=== PATIENT | male | born 1995 | race Caucasian/White ===

== ENCOUNTER 2020-11-27 10:34 | Emergency (ER) | payer BC, SELFPAY ==
--- NOTE | 2020-11-27 10:38 | ED.SKABFB ---
HPI - Skin/Abscess/Foreign Bdy General Chief complaint: Skin/Abscess/Foreign Body Stated complaint: cruz redness Time Seen by Provider: 11/27/20 10:38 Source: patient and RN notes reviewed History of Present Illness HPI narrative: Patient is a 25-year-old male who presents the urgent care with complaints of redness and swelling to the right lower leg. Patient states that it started yesterday. Denies of any fever, chills, nausea, vomiting. Denies of any injury or trauma. Did not take anything [id number] for his pain. No other acute complaints. No acute distress noted. Patient aware of the plan of care. Some parts of this dictation were generated by voice recognition software and may contain typographical and/or grammatical inaccuracies. Related Data Allergies Allergy/AdvReac Type Severity Reaction Status Date / Time No Known Allergies Allergy Unverified 11/27/20 10:49 Review of Systems Review of Systems: Narrative: CONSTITUTIONAL: Denies fever, chills, or sweats. EYES: Denies visual changes, redness, or discharge. ENT: Denies rhinorrhea, congestion, sore throat, or otalgia. CARDIOVASCULAR: Denies chest pain, palpitations, or edema. RESPIRATORY: Denies cough or dyspnea. GASTROINTESTINAL: Denies abdominal pain, nausea, vomiting, or diarrhea. GENITOURINARY: Denies dysuria or hematuria. SKIN: Reports of redness and swelling to the right lower leg MUSCULOSKELETAL: Denies back pain, joint pain, or myalgia. NEUROLOGIC: Denies headache, numbness, or weakness. All other systems reviewed are negative, except as documented in HPI. PMFSH Social History Social History (Updated 12/31/19 @ 08:50 by Linda Cruz) Smoking status: Never smoker Second hand tobacco smoke exposure: No Alcohol intake: current Drinks per week: 4 Substance use: never Substance use type: does not use Gender identity (if verbalized by the patient): Male Comments At the time of my signature, I reviewed and agree with the nursing past medical, surgical, social, and family history. There is no relevant family history pertinent to the patient complaint. Exam Narrative: Exam Narrative: GENERAL: This is a well-nourished, well-developed patient, in no apparent distress. HEAD: normocephalic, atraumatic. EYES: PERRL. Sclera clear/white. Vision is grossly intact. EARS: External ears normal NOSE: External nose normal with no obvious nasal discharge, nares without redness, no rhinorrhea. THROAT: Mucous membranes moist NECK: Neck supple CARDIOVASCULAR: Regular rate and rhythm without murmurs, gallops, or rubs. RESPIRATORY: Clear to auscultation. Breath sounds equal bilaterally. No wheezes, rales, or rhonchi. SKIN: 10 x 9 cm area of erythema with mild edema to the right anterior lower leg NEURO: awake, alert, and oriented to person, place and time. There were no obvious focal neurologic abnormalities. EXTREMITIES: No clubbing, cyanosis, or edema. No joint tenderness, effusion, or edema noted. No calf tenderness. Positive strong right pedal pulse with capillary refill less than 2 seconds. Range of motion within normal limits to right lower extremity Course Vital Signs Vital signs: Vital Signs Temperature 98.1 F 11/27/20 10:43 Pulse Rate 85 11/27/20 10:43 Respiratory Rate 16 11/27/20 10:43 Blood Pressure 133/77 11/27/20 10:43 Pulse Oximetry 100 11/27/20 10:43 Temperature 98.1 F 11/27/20 10:43 Pulse Rate 85 11/27/20 10:43 Respiratory Rate 16 11/27/20 10:43 Blood Pressure 133/77 11/27/20 10:43 Pulse Oximetry 100 11/27/20 10:43 Reviewed MDM - Skin/Abscess/Foreign Bdy MDM Narrative Medical decision making narrative: Advised the patient to complete oral antibiotic regimen as prescribed. Be sure to eat and drink with the medication. Be sure to wear sunscreen if you are going to be out in the sun. If you develop any increase in redness associated with streaking up or down the leg, nausea, vomiting, fever?go
[2020-11-27 10:43] VITALS: BP 133/77; PULSE 85; RESP 16; TEMP 36.7; O2SAT 100
== END 2020-11-27 10:58 | disposition home or self-care (01) ==
PROVIDERS: Emergency Provider Nurse Practitioner Family; PCP Family Medicine
DX: L03.115 Cellulitis of right lower limb (principal)
CPT/HCPCS: 99213; G0463